=== PATIENT | female | born 1985 | race African-American/Black ===

== ENCOUNTER → 2016-11-26 | Outpatient (REF) | payer OTHER ==
[~2016-11-26] MED LIST: PRENTAB8
[2016-11-26 13:39] LABS: MEAN CORPUSCULAR HEMOGLOBIN 30.1 pg (27.0-33.0); MEAN CORPUSCULAR HGB CONC 33.5 g/dl (32.0-36.5); RED CELL DISTRIBUTION WIDTH 12.8 % (11.5-14.5); WHITE BLOOD COUNT 6.4 K/mm3 (4.0-10.0)
[2016-11-26 14:49] LABS: HCG, SERUM QUANTITATIVE 14487 MIU/ML
[2016-11-27 11:15] LABS: HBsAg Prenatal NEGATIVE (NEGATIVE)
[2016-11-27 12:54] LABS: CONTROL LINE INT CTR LINE PRESENT; HIV SCRN NEGATIVE (NEGATIVE); HIV SCRN1 NEGATIVE (NEGATIVE)
== END ==
LOC: M LAB REF 12:32
PROVIDERS: ATTEND Advanced Practice Midwife
DX: O36.80X0 Pregnancy with inconclusive fetal viability, not applicable or unspecified (principal); Z36 Encounter for antenatal screening of mother; Z3A.00 Weeks of gestation of pregnancy not specified

== ENCOUNTER 2017-01-03 19:33 | Emergency (ER) | payer OTHER, MEDICAID ==
[~2017-01-03] VITALS: Ht 157.5 cm; Wt 70.3 kg
[2017-01-03 19:33] VITALS: BP 120/75
[2017-01-03] MEDS ORDERED: FLON1SPR (20:18)
== END 2017-01-03 20:25 | disposition home or self-care (01) ==
LOC: M ED 20:20
DX: O99.511 Diseases of the respiratory system complicating pregnancy, first trimester (principal); J06.9 Acute upper respiratory infection, unspecified; Z98.84 Bariatric surgery status; Z3A.11 11 weeks gestation of pregnancy

== ENCOUNTER → 2017-01-22 | Outpatient (REF) | payer OTHER, MEDICAID ==
[~2017-01-22] MED LIST changes: +FLON1SPR
[2017-01-22 17:17] LABS: CALCIUM LEVEL 8.5 MG/DL (8.5-10.1)
[2017-01-22 17:31] LABS: FOLATE > 24.0 NG/ML; VITAMIN B12 LEVEL 219 PG/ML
== END ==
LOC: M LAB REF 16:27
PROVIDERS: ATTEND Advanced Practice Midwife
DX: O99.841 Bariatric surgery status complicating pregnancy, first trimester (principal); Z36 Encounter for antenatal screening of mother; Z3A.00 Weeks of gestation of pregnancy not specified

== ENCOUNTER → 2017-04-21 | Outpatient (CLI) | payer OTHER, MEDICAID ==
[2017-04-21 10:24] LABS: MEAN CORPUSCULAR HGB CONC 32.9 g/dl (32.0-36.5); MEAN CORPUSCULAR VOLUME 94.2 fl (80.0-96.0); RED CELL DISTRIBUTION WIDTH 13.5 % (11.5-14.5); WHITE BLOOD COUNT 5.7 K/mm3 (4.0-10.0)
== END ==
LOC: M LAB 08:26
PROVIDERS: ATTEND Advanced Practice Midwife
DX: Z36 Encounter for antenatal screening of mother (principal); Z3A.25 25 weeks gestation of pregnancy

== ENCOUNTER → 2017-06-18 | Outpatient (REF) | payer OTHER, MEDICAID | LOC: M LAB REF 12:05 | PROVIDERS: ATTEND Advanced Practice Midwife | DX: Z34.83 Encounter for supervision of other normal pregnancy, third trimester (principal); Z3A.00 Weeks of gestation of pregnancy not specified ==

== ENCOUNTER → 2017-07-02 | Outpatient (REF) | payer OTHER, MEDICAID ==
[2017-07-02 18:28] LABS: MICROSCOPIC INDICATED? MAN YES (NO)
[2017-07-02 18:54] LABS: SQUAMOUS EPITHELIAL CELL URINE SMALL AMOUNT /hpf (SMALL AMT)
[2017-07-02 18:55] LABS: BACTERIA, URINE SMALL AMOUNT; HYALINE CAST, URINE NONE SEEN /lpf (0-1); MICROSCOPIC EXAM PERFORMED
== END ==
LOC: M LAB REF 16:28
PROVIDERS: ATTEND Advanced Practice Midwife
DX: Z34.83 Encounter for supervision of other normal pregnancy, third trimester (principal); Z3A.36 36 weeks gestation of pregnancy

== ENCOUNTER 2017-07-25 01:18 | Inpatient (IN) | payer OTHER, MEDICAID ==
[~2017-07-25] VITALS: Ht 157.5 cm; Wt 84.2 kg
[2017-07-25] VITALS (35 sets, daily range): BP systolic 109–151; BP diastolic 57–93
[2017-07-25] MEDS ORDERED: LACTATED RINGER'S 1000 ML IV STA (01:56)
[2017-07-25] MEDS ORDERED: LR 1,000 ML IV SCH (01:56)
[2017-07-25 02:12] LABS: MEAN CORPUSCULAR HEMOGLOBIN 28.6 pg (27.0-33.0); MEAN CORPUSCULAR HGB CONC 32.9 g/dl (32.0-36.5); MEAN CORPUSCULAR VOLUME 86.8 fl (80.0-96.0); PLATELET COUNT, AUTOMATED 238 10^3/uL (150-450); RED CELL DISTRIBUTION WIDTH 13.4 % (11.5-14.5); WHITE BLOOD COUNT 12.2 10^3/uL (4.0-10.0)
--- NOTE | 2017-07-25 02:18 | HPEPDOC ---
Obstetrical History & Physical General Date of Admission Jul 25, 2017 at 01:54 Primary Care Physician: EVELINE MENDENHALL CNM History of Present Illness Patient is a 31-year-old female who is a at 39.5 weeks gestation with an RADHA of 07/27/17 based off of her 1st trimester ultrasound. She initiated care in her 1st trimester with [facility]. Her has been uncomplicated. She presents to L&D with complaints of leaking clear fluid. Reports leaking started at midnight. Reports contractions and active movement. Denies vaginal bleeding. Chief Complaint: Contractions, term, Rupture of membranes Information Provided By: Patient Age: 31 : 2 Term: 1 Pre-term: 0 Abortions: 0 Livin Care Care: Good Care Number of Visits: 13 Dating Final EDC: Jul 27, 2017 Final EDC by: 1st trimester (US) LMP: Sep 23, 2016 EGA at Admission: 39.5 Antepartum Course Height (inches): 62 Pre- weight (lbs.): 154 Admission Weight (lbs.): 185 Change in Weight (lbs.): 31 Past Medical History Past Obstetrical History : Past Obstetrical History: Multigravida Gestation: 40 Type of Delivery: Spontaneous Vaginal Del. (05/2011) Sex of : Male (weighting 7 lbs. 2 oz.) Complications: No [employer] History: Abnormal Pap Past Medical History Medical History varicella as a child Surgical History: Other (gastric bypass in 2013) Family History Significant Family History: Diabetes, Hypertension Social History Marital Status: Family situation: Spouse/partner home Psychosocial History: No pertinent psych hx * Smoker: non-smoker Alcohol: Denies Drugs: denies Abuse Violence Screening Have you been hit/kicked/slapp: No Have you been sexually assault: No Imunizations Tdap status: current Influenza Status: current Allergies Coded Allergies: No Known Drug Allergy (Verified Allergy, Unknown, 12/13/12) Medications Scheduled (Flonase Allergy Relief) 50 Mcg/Act Spr, 50 MCG NA DAILY [ Vitamins] , DAILY Physical Examination Physical Examination GENERAL: Alert and oriented times three. BREAST: . ABDOMEN: Gravid and non-tender to touch. FETUS: Is vertex (VTX) by sterile vaginal examination (SVE), fetus is vertex ( VTX) by Kristian. HEART RATE: Regular rate and rhythm. LUNGS: Clear to auscultation (CTA). EXTREMITIES: Generalized edema. No clonus. Laboratory Data Urine Culture: No Growth Pertinent Laboratoy Data Blood Type: O+ RBC Antibody Screen: Negative HIV: Negative Hepatitis B: Negative Hepatitis C: Negative Rapid Plasma Reagin: Nonreactive Rubella: Immune Chlamydia/Gonorrhea: Negative Group B Streptococcus: Negative Quad Screen Test: Negative Cystic Fibrosis: Negative Glucose Tolerance Test: 108 Vaginal Examination Dilation: 2cm Effacement: Other (90%) Station: -1, 0 Cervical Consistency: Soft Cervical Position: Anterior Presentation: Cephalic presentation Position: Vertex (occiput) Assessment Heart Rate (FHR): 120 Variability: Moderate Accelerations: Positive Decelerations: Early Tocometer Contractions: Yes Frequency: regular, every 1-3 min. Strength: palpated as mild Multi-drug resistant Organism: No history of MDRO Assessment/Plan Assessment IUP at 39.5 weeks gestation SROM contractions at term Category I FHR tracing GBS negative Plan Admit to L&D Diet: clear liquid OOB ad eileen Labs and intravenous (IV) per unit protocol. Lactated Ringers (LR): Bolus 800 mL, then at 125 mL/hr. Anesthesia consult per patient's desire for epidural. Anticipate cervical change and . EVELINE MENDENHALL CNM Jul 25, 2017 02:18
[2017-07-25] MEDS ORDERED: OXYTOCIN DRIP 30 UNITS in APPROPRIATE DILUENT 1 EA IV SCH ×2 (03:00→08:07)
[2017-07-25] MEDS ORDERED: FENTANYL 2MCG/ML ROPIVACAINE 0.2% IN 0.9% NACL 200ML IVBAG As Ordered ONE (03:05)
[2017-07-25] MEDS ORDERED: FENTANYL/ROPIVACAINE/NACL BAG 200 ML EPIDURAL SCH (03:40)
[2017-07-25] MEDS ORDERED: ePHEDrine SULFATE 25 MG/5 ML(5MG/ML) SYRINGE IV PRN (03:40)
[2017-07-25] MEDS ORDERED: diphenhydrAMINE INJ 50MG/ML VIAL (J1200) IV PRN (03:40)
[2017-07-25] MEDS ORDERED: EPIDURAL/PCA KEYS XX PRN (03:40)
[2017-07-25] MEDS ORDERED: ONDANSETRON 4MG/2ML VIAL (J2405) IV PRN (03:40)
[2017-07-25] MEDS ORDERED: LACTATED RINGER'S 1000 ML IV PRN (03:40)
[2017-07-25] MEDS ORDERED: REFRIGERATOR IV KEYS XX PRN (03:40)
[2017-07-25] MEDS ORDERED: EPIDURAL COMMENT XX SCH (03:40)
[2017-07-25] MEDS ORDERED: NALOXONE INJ 0.4 MG/1 ML VIAL (J2310) IV PRN (03:40)
[2017-07-25] MEDS: ACETAMINOPHEN 500 MG TAB PO PRN ×2 (08:14→19:33)
[2017-07-25] MEDS ORDERED: DOCUSATE SODIUM 100 MG CAP PO PRN (08:15)
[2017-07-25] MEDS ORDERED: RHOGAM 300 MCG (1500 IU) INJ (J2790) IM SCH (08:15)
[2017-07-25] MEDS ORDERED: METHYLERGONOVINE MALEATE 0.2 MG TAB PO PRN (08:15)
[2017-07-25] MEDS ORDERED: DIBUCAINE 1% OINTMENT 30GM TOP PRN (08:15)
[2017-07-25] MEDS ORDERED: MEASLES,MUMPS,RUBELLA VACCINE INJ (MMR-II) (90707) SC SCH (08:15)
--- NOTE | 2017-07-25 08:32 | DNPDOC ---
[facility] Delivery Note Delivery Note DATE OF DELIVERY: 07/25/17 at 0735 PROCEDURE: Spontaneous vaginal delivery. PROVIDER: Eveline Banerjee CNM, [facility] ANESTHESIA: epidural. ESTIMATED BLOOD LOSS: 200 mL. FINDINGS: 7 pounds 7 ounces, 3360 grams, male infant, Score 9/9, true knot , bradycardia. DELIVERY SUMMARY: Patient is a 31-year-old female who is now a at 39.5 weeks gestation who presented to L&D spontaneously ruptured at 0000 with clear fluid. She received an epidural for pain management and 5.8 mu of Pitocin via IV for augmentation. She progressed to fully dilated at 0703. Dr. Moses notified to attend delivery due to a prolonged deceleration. She pushed to a live male at 0735 in the OP position to MAYRA with restitution to LOT. The anterior shoulders delivered with ease and the corpus immediately followed. The baby was placed on the maternal abdomen active and crying. A true knot was noticed in the umbilical cord. The cord was clamped after pulsation ceased x2 and cut by the patient. The placenta delivered spontaneously and intact at 0740. Uterine hemostasis achieved via rapid infusion of IV Pitocin and uterine fundal massage. The perineum and vagina were inspected and found to have a left labial abrasion. Mom plans to bottle feed her . Mom and baby are in stable condition. EVELINE BANERJEE CNM Jul 25, 2017 08:32
[2017-07-25] MEDS: PRENATAL VITAMINS CHEWABLE TABLET PO SCH (09:00)
[2017-07-25] MEDS: IBUPROFEN 800 MG TAB PO PRN ×2 (13:16→23:39)
[2017-07-26 05:44] VITALS: BP 127/82
[2017-07-26] MEDS: PRENATAL VITAMINS CHEWABLE TABLET PO SCH (08:00)
[2017-07-26] MEDS: ACETAMINOPHEN 500 MG TAB PO PRN ×2 (08:01→17:57)
[2017-07-26] MEDS: IBUPROFEN 800 MG TAB PO PRN ×2 (12:24→21:19)
[2017-07-26 18:25] VITALS: BP 133/88
[2017-07-27 06:00] VITALS: BP 126/83
[2017-07-27] MEDS: IBUPROFEN 800 MG TAB PO PRN (07:47)
[2017-07-27] MEDS: PRENATAL VITAMINS CHEWABLE TABLET PO SCH (07:47)
[2017-07-27] MEDS ORDERED: IBUP-1114 PO (12:18)
[2017-07-27] MEDS ORDERED: PRENTAB9 PO (12:18)
[2017-07-27] MEDS ORDERED: ACET50TA PO (12:18)
== END 2017-07-27 12:55 | disposition home or self-care (01) | DRG 775 ==
LOC: M LDO 01:18 → M LDI 01:54 → M OBS 09:51
PROVIDERS: ADMIT Advanced Practice Midwife; ATTEND Advanced Practice Midwife
PROC: 10E0XZZ Delivery of Products of Conception, External Approach (ICD-10-PCS; principal; 2017-07-25)
DX: O69.2XX0 Labor and delivery complicated by other cord entanglement, with compression, not applicable or unspecified (principal); Z3A.39 39 weeks gestation of pregnancy; O76 Abnormality in fetal heart rate and rhythm complicating labor and delivery; Z37.0 Single live birth

== ENCOUNTER → 2017-10-17 | Day surgery (SDC) | payer OTHER, MEDICAID ==
[~2017-10-17] MED LIST changes: +ACETAMINOPHEN 120 MG SUPP As Ordered; +ACETAMINOPHEN 650 MG SUPP As Ordered; -FLON1SPR; +GLYCOPYRROLATE INJ 0.2 MG/ML 2 ML VIAL As Ordered; +HYDROmorphone HCL 1 MG/ML SYRINGE (J1170) IV; +HYDROmorphone HCL 2 MG/ML 1ML VIAL (J1170) As Ordered; +IBUPROFEN 800 MG TAB PO; +LIDOCAINE 2% INJ 100 MG/5 ML SDV (FOR ANES.) As Ordered; +LR 1,000 ML IV; +MIDAZOLAM INJ 2 MG/2 ML VIAL (J2250) As Ordered; +NEOSTIGMINE 10 MG/10 ML VIAL (J2710) As Ordered; +ONDANSETRON 4MG/2ML VIAL (J2405) As Ordered; +ONDANSETRON 4MG/2ML VIAL (J2405) IV; +PERCOCET 5MG/325MG TAB PO; -PRENTAB8; +PROPOFOL 200 MG/20 ML VIAL As Ordered; +ROCURONIUM BROMIDE 50 MG/5 ML VIAL As Ordered; +dexameTHASONE 4 MG/ML 1ML VIAL (J1100) As Ordered; +ePHEDrine INJ 50 MG/ML VIAL As Ordered; +fentaNYL 100 MCG/2 ML INJECTION (J3010) As Ordered
[2017-10-17 06:41] LABS: HEMATOCRIT 33.4 % (36.0-47.0); HEMOGLOBIN 10.8 g/dl (12.0-16.0); MEAN CORPUSCULAR HEMOGLOBIN 28.1 pg (27.0-33.0); MEAN CORPUSCULAR HGB CONC 32.3 g/dl (32.0-36.5); MEAN CORPUSCULAR VOLUME 86.8 fl (80.0-96.0); PLATELET COUNT, AUTOMATED 215 10^3/uL (150-450); RED BLOOD COUNT 3.85 10^6/uL (4.00-5.40); RED CELL DISTRIBUTION WIDTH 13.5 % (11.5-14.5); WHITE BLOOD COUNT 6.2 10^3/uL (4.0-10.0)
[2017-10-17] MEDS: LR 1,000 ML IV (06:45)
[2017-10-17 06:56] LABS: CONTROL LINE HCG INT CTR LINE PRESENT; HCG, SERUM QUALITATIVE NEGATIVE (NEGATIVE)
[2017-10-17 07:00] LABS: ANION GAP 6 MEQ/L (8-16); BLOOD UREA NITROGEN 7 MG/DL (7-18); CALCIUM LEVEL 8.6 MG/DL (8.5-10.1); CARBON DIOXIDE LEVEL 28 MEQ/L (21-32); CHLORIDE LEVEL 107 MEQ/L (98-107); CREATININE FOR GFR 0.85 MG/DL (0.55-1.30); GLOMERULAR FILTRATION RATE > 60.0 (>60); GLUCOSE, FASTING 90 MG/DL (70-100); SODIUM LEVEL 141 MEQ/L (136-145)
[2017-10-17] MEDS: LIDOCAINE W/EPINEPHRINE 1% 20ML VIAL As Ordered (07:45)
[2017-10-17] MEDS: ACETAMINOPHEN 650 MG SUPP PR (08:24)
[2017-10-17] MEDS: fentaNYL 100 MCG/2 ML INJECTION (J3010) IV ×2 (09:07→09:29)
[2017-10-17] MEDS: PERCOCET 5MG/325MG TAB PO (09:07)
== END | disposition home or self-care (01) ==
LOC: M SDC 05:51
DX: Z30.2 Encounter for sterilization (principal); L30.9 Dermatitis, unspecified; F41.9 Anxiety disorder, unspecified; Z79.899 Other long term (current) drug therapy; Z98.84 Bariatric surgery status; Z87.19 Personal history of other diseases of the digestive system; Z86.59 Personal history of other mental and behavioral disorders
CPT/HCPCS: 58671

== ENCOUNTER 2018-01-25 10:29 | Emergency (ER) | payer OTHER, MEDICAID ==
[2018-01-25 11:06] LABS: HEMATOCRIT 36.6 % (36.0-47.0); HEMOGLOBIN 11.6 g/dl (12.0-15.5); MEAN CORPUSCULAR HEMOGLOBIN 27.2 pg (27.0-33.0); MEAN CORPUSCULAR HGB CONC 31.7 g/dl (32.0-36.5); MEAN CORPUSCULAR VOLUME 85.7 fl (80.0-96.0); PLATELET COUNT, AUTOMATED 239 10^3/uL (150-450); RED BLOOD COUNT 4.27 10^6/uL (4.00-5.40); RED CELL DISTRIBUTION WIDTH 14.6 % (11.5-14.5); WHITE BLOOD COUNT 5.7 10^3/uL (4.0-10.0)
[2018-01-25 11:24] LABS: CONTROL LINE HCG INT CTR LINE PRESENT; HCG, SERUM QUALITATIVE NEGATIVE (NEGATIVE)
[2018-01-25 11:29] LABS: AMPHETAMINES LEVEL URINE POSITIVE (NEGATIVE); BARBITURATES URINE NEGATIVE (NEGATIVE); BENZODIAZEPINES URINE NEGATIVE (NEGATIVE); CANNABINOIDS URINE NEGATIVE (NEGATIVE); COCAINE METABOLITE URINE NEGATIVE (NEGATIVE); METHADONE URINE NEGATIVE (NEGATIVE); OPIATES URINE NEGATIVE (NEGATIVE); PHENCYCLIDINE URINE NEGATIVE (NEGATIVE)
[2018-01-25 11:39] LABS: ALBUMIN 3.9 GM/DL (3.2-5.2); ALBUMIN/GLOBULIN RATIO 1.03 (1.00-1.93); ALKALINE PHOSPHATASE 101 U/L (45-117); ALT/SGPT 19 U/L (12-78); ANION GAP 6 MEQ/L (8-16); AST/SGOT 14 U/L (7-37); BILIRUBIN,DIRECT 0.4 MG/DL (0.0-0.2); BILIRUBIN,TOTAL 1.5 MG/DL (0.2-1.0); BLOOD UREA NITROGEN 9 MG/DL (7-18); CALCIUM LEVEL 8.5 MG/DL (8.5-10.1); CARBON DIOXIDE LEVEL 28 MEQ/L (21-32); CHLORIDE LEVEL 108 MEQ/L (98-107); GLOMERULAR FILTRATION RATE > 60.0 (>60); GLUCOSE, FASTING 87 MG/DL (70-100); POTASSIUM SERUM 3.5 MEQ/L (3.5-5.1); SALICYLATE LEVEL < 1.7 MG/DL (5.0-30.0); SODIUM LEVEL 142 MEQ/L (136-145); TOTAL PROTEIN 7.7 GM/DL (6.4-8.2)
[2018-01-25 11:40] LABS: ACETAMINOPHEN LEVEL < 2.0 UG/ML (10.0-30.0); ETHYL ALCOHOL (ETHANOL) < 0.003 % (0.000-0.010)
== END 2018-01-25 13:13 | disposition home or self-care (01) ==
LOC: M ED 10:29
DX: F43.20 Adjustment disorder, unspecified (principal); F33.9 Major depressive disorder, recurrent, unspecified; Z79.899 Other long term (current) drug therapy
CPT/HCPCS: G0480

== ENCOUNTER 2018-09-08 08:33 | Emergency (ER) | payer OTHER ==
[~2018-09-08] VITALS: Ht 157.5 cm; Wt 68.2 kg
[~2018-09-08 08:33] MED LIST changes: -ACETAMINOPHEN 120 MG SUPP As Ordered; -ACETAMINOPHEN 650 MG SUPP As Ordered; +FLON1SPR; -GLYCOPYRROLATE INJ 0.2 MG/ML 2 ML VIAL As Ordered; -HYDROmorphone HCL 1 MG/ML SYRINGE (J1170) IV; -HYDROmorphone HCL 2 MG/ML 1ML VIAL (J1170) As Ordered; +IBUP-1114 PO; -IBUPROFEN 800 MG TAB PO; -LIDOCAINE 2% INJ 100 MG/5 ML SDV (FOR ANES.) As Ordered; -LR 1,000 ML IV; +MAPA500T2 PO; -MIDAZOLAM INJ 2 MG/2 ML VIAL (J2250) As Ordered; -NEOSTIGMINE 10 MG/10 ML VIAL (J2710) As Ordered; -ONDANSETRON 4MG/2ML VIAL (J2405) As Ordered; -ONDANSETRON 4MG/2ML VIAL (J2405) IV; +PERC5TAB12 PO; -PERCOCET 5MG/325MG TAB PO; +PRENTAB8; +PRENTAB9 PO; -PROPOFOL 200 MG/20 ML VIAL As Ordered; +PROZ20CA11 PO; -ROCURONIUM BROMIDE 50 MG/5 ML VIAL As Ordered; +VITA50005 PO; +VITATAB11 PO; +WELLTAB38 PO; -dexameTHASONE 4 MG/ML 1ML VIAL (J1100) As Ordered; -ePHEDrine INJ 50 MG/ML VIAL As Ordered; -fentaNYL 100 MCG/2 ML INJECTION (J3010) As Ordered
[2018-09-08] MEDS ORDERED: ACET500T15 PO (08:39)
[2018-09-08] MEDS ORDERED: IBUP-1022 PO (08:39)
[2018-09-08] MEDS ORDERED: NS 1,000 ML IV ONE (09:15)
--- NOTE | 2018-09-08 09:39 | REP ---
Clinical: Migraine headache . Comparison: None . Findings: The ventricles, sulci, and cisterns are normal in position and appearance. Arriaga-white differentiation is maintained. No acute intracranial hemorrhage, mass/mass effect, pathology or trauma/injury. No evidence for acute infarction. No extra-axial fluid collection. Calvarium is intact. Paranasal sinuses and mastoid air cells are clear. Impression: Normal noncontrast head CT. No evidence for acute intracranial pathology or trauma/injury. Electronically Signed by Adan Gardner MD 09/08/2018 09:31 A
[2018-09-08] MEDS ORDERED: KETOROLAC 30 MG/ML VIAL (J1885) IV ONE (09:45)
[2018-09-08] MEDS ORDERED: METOCLOPRAMIDE INJ 10MG/2ML VIAL (J2765) IV ONE (09:45)
[2018-09-08] MEDS ORDERED: diphenhydrAMINE INJ 50MG/ML VIAL (J1200) IV ONE (09:45)
[2018-09-08 10:55] VITALS: BP 136/86
== END 2018-09-08 10:55 | disposition home or self-care (01) ==
LOC: M ED 08:33
DX: G43.909 Migraine, unspecified, not intractable, without status migrainosus (principal)
CPT/HCPCS: 70450; 96361; 96374; 96375; 99284; J1200; J1885; J2765

== ENCOUNTER → 2020-06-25 | Outpatient (REF) | payer OTHER ==
[~2020-06-25] MED LIST changes: +ACET500T15 PO; +IBUP-1022 PO
[2020-06-25 15:33] LABS: APPEARANCE, URINE CLEAR (CLEAR); BACTERIA, URINE AUTO 1+ (NEGATIVE); BILIRUBIN, URINE AUTO NEGATIVE (NEGATIVE); BLOOD, URINE BLOOD 1+ (NEGATIVE); COLOR, URINE YELLOW (YELLOW); GLUCOSE, URINE (UA) AUTO NEGATIVE (NEGATIVE); KETONE, URINE AUTO NEGATIVE (NEGATIVE); LEUKOCYTE ESTERASE, URINE AUTO NEGATIVE (NEGATIVE); MUCUS, URINE SMALL (NEGATIVE); NITRITE, URINE AUTO NEGATIVE (NEGATIVE); PROTEIN, URINE AUTO NEGATIVE (NEGATIVE); RBC, URINE AUTO 5 /HPF (0-3); SPECIFIC GRAVITY URINE AUTO 1.021 (1.002-1.035); SQUAMOUS EPITHELIAL CELL UR AU 4 /HPF (0-6); WBC, URINE AUTO 1 /HPF (0-3)
== END ==
LOC: M LAB REF 15:19
PROVIDERS: ATTEND Physician Assistant Medical
DX: N39.0 Urinary tract infection, site not specified (principal); A64 Unspecified sexually transmitted disease

== ENCOUNTER → 2021-01-17 | Outpatient (CLI) | payer SELFPAY | LOC: M LABSMTC 09:35 | PROVIDERS: ATTEND Pediatrics | DX: Z11.52 Encounter for screening for COVID-19 (principal) ==

== ENCOUNTER → 2021-07-05 | Outpatient (CLI) | payer OTHER | LOC: M PAIN 09:00 | PROVIDERS: ATTEND Anesthesiology | DX: G43.709 Chronic migraine without aura, not intractable, without status migrainosus (principal); F32.A Depression, unspecified; D64.9 Anemia, unspecified; E55.9 Vitamin D deficiency, unspecified; M54.50 Low back pain, unspecified; M25.562 Pain in left knee; Z79.899 Other long term (current) drug therapy ==

== ENCOUNTER → 2021-08-23 | Outpatient (CLI) | payer OTHER | LOC: M LABSMTC 10:31 | PROVIDERS: ATTEND Anesthesiology | DX: Z11.52 Encounter for screening for COVID-19 (principal) ==

== ENCOUNTER → 2021-10-03 | Outpatient (CLI) | payer OTHER | LOC: M LABSMTC 12:44 | PROVIDERS: ATTEND Anesthesiology | DX: Z01.812 Encounter for preprocedural laboratory examination (principal); Z11.52 Encounter for screening for COVID-19 ==

== ENCOUNTER → 2021-10-08 | Outpatient (CLI) | payer OTHER ==
[~2021-10-08] MED LIST changes: +BOTOX THERAPEUTIC 100 UNIT VIAL (J0585 PER 1 UNIT) IM ONE; +NORCO, ANEXSIA 5/325MG TABLET (HYDROcodone/ACETAMINOPHEN) As Ordered ONE; +diazePAM 5MG TABLET As Ordered ONE
== END ==
LOC: M PAIN 10:40
PROVIDERS: ATTEND Anesthesiology
DX: G43.709 Chronic migraine without aura, not intractable, without status migrainosus (principal); F32.A Depression, unspecified; D52.9 Folate deficiency anemia, unspecified; E55.9 Vitamin D deficiency, unspecified; M54.50 Low back pain, unspecified; D51.9 Vitamin B12 deficiency anemia, unspecified; Z79.899 Other long term (current) drug therapy
CPT/HCPCS: 64615; J0585

== ENCOUNTER → 2021-11-05 | Outpatient (CLI) | payer OTHER ==
[~2021-11-05] MED LIST changes: -BOTOX THERAPEUTIC 100 UNIT VIAL (J0585 PER 1 UNIT) IM ONE; -NORCO, ANEXSIA 5/325MG TABLET (HYDROcodone/ACETAMINOPHEN) As Ordered ONE; -diazePAM 5MG TABLET As Ordered ONE
== END ==
LOC: M PAIN 14:45
PROVIDERS: ATTEND Nurse Practitioner Family
DX: G43.709 Chronic migraine without aura, not intractable, without status migrainosus (principal); F32.A Depression, unspecified; D64.9 Anemia, unspecified; E55.9 Vitamin D deficiency, unspecified; M54.50 Low back pain, unspecified; M25.562 Pain in left knee; E53.8 Deficiency of other specified B group vitamins; Z79.899 Other long term (current) drug therapy

== ENCOUNTER → 2021-11-06 | Outpatient (CLI) | payer OTHER | LOC: M RAD 09:50 | PROVIDERS: ATTEND Physician Assistant | DX: R22.2 Localized swelling, mass and lump, trunk (principal) ==

== ENCOUNTER → 2022-02-14 | Outpatient (CLI) | payer OTHER ==
[~2022-02-14] MED LIST changes: +BOTOX THERAPEUTIC 100 UNIT VIAL (J0585 PER 1 UNIT) IM ONE; +NORCO, ANEXSIA 5/325MG TABLET (HYDROcodone/ACETAMINOPHEN) As Ordered ONE; +diazePAM 5MG TABLET As Ordered ONE
== END ==
LOC: M PAIN 08:45
PROVIDERS: ATTEND Anesthesiology
DX: G43.709 Chronic migraine without aura, not intractable, without status migrainosus (principal); F32.A Depression, unspecified; D64.9 Anemia, unspecified; E55.9 Vitamin D deficiency, unspecified; M25.562 Pain in left knee; Z79.899 Other long term (current) drug therapy
CPT/HCPCS: 64615; J0585